=== PATIENT | female | born 1990 | race Two or more races ===

== ENCOUNTER 2018-09-21 16:15 | Emergency (ER) | payer MEDICAID ==
[~2018-09-21] VITALS: Ht 160 cm; Wt 96.6 kg
[2018-09-21 18:43] VITALS: Ht 160 cm; Wt 96.6 kg
[2018-09-21 20:25] VITALS: BP 122/72
== END 2018-09-21 20:25 | disposition home or self-care (01) ==
LOC: ED 16:15
DX: R51 Headache (principal)